=== PATIENT | male | born 1960 | race Caucasian/White ===

== ENCOUNTER 2018-02-25 15:02 | Emergency (ER) | payer MEDICARE ==
[~2018-02-25] VITALS: Ht 170.2 cm; Wt 100.0 kg
[2018-02-25 17:53] VITALS: BP 131/82
== END 2018-02-25 17:57 | disposition home or self-care (01) ==
LOC: ER 15:02
DX: S83.8X1A Sprain of other specified parts of right knee, initial encounter (principal); E11.9 Type 2 diabetes mellitus without complications; K21.9 Gastro-esophageal reflux disease without esophagitis; E78.00 Pure hypercholesterolemia, unspecified; Z93.3 Colostomy status; X58.XXXA Exposure to other specified factors, initial encounter; Y93.01 Activity, walking, marching and hiking; Y92.89 Other specified places as the place of occurrence of the external cause; Y99.8 Other external cause status
CPT/HCPCS: 73562; 99284; L1830

== ENCOUNTER 2019-03-19 01:51 | Inpatient (IN) | payer MEDICARE, MEDICAID ==
[2019-03-19] VITALS (60 sets, daily range): BP systolic 81–181; BP diastolic 40–110
[~2019-03-19] VITALS: Ht 167.6 cm; Wt 97.7 kg
[2019-03-19] MEDS ORDERED: ONDANSETRON HCL 4MG/2ML INJ IV STA (02:25)
[2019-03-19] MEDS ORDERED: SODIUM CHLORIDE 0.9% 1,000 ML IV ONE ×5 (02:25→05:07)
[2019-03-19] MEDS ORDERED: FENTANYL CITRATE/PF 50MCG/ML 2ML VIAL IV ONE ×2 (02:30→05:15)
[2019-03-19 02:45] LABS: HEMATOCRIT. 40.1 % (42.0-52.0); HEMOGLOBIN. 13.9 g/dL (14.0-18.0); MEAN CORPUSCULAR HEMOGLOBIN 30.8 pg (28.0-32.0); MEAN CORPUSCULAR VOLUME 88.5 fL (80.0-94.0); MEAN PLATELET VOLUME 7.2 fl (7.4-10.4); PLATELET 397 x1000/uL (130-400); RED BLOOD CELL COUNT 4.53 mill/uL (4.7-6.1); RED CELL DISTRIBUTION WIDTH 13.8 % (11.6-14.6)
[2019-03-19] MEDS ORDERED: METRONIDAZOLE 500 MG PREMIX 100 ML IV ONE (02:45)
[2019-03-19] MEDS ORDERED: PIPERACILLIN/TAZ 3.375G PREMIX 50 ML IV ONE ×2 (02:45→12:15)
[2019-03-19] MEDS ORDERED: CEFTRIAXONE 1 G PREMIX 50 ML IV ONE (02:45)
[2019-03-19 02:46] LABS: BG BASE EXCESS -9.3 mmol/L (-2.0-2.0); BG CARBOXYHEMOGLOBIN 0.7 % (0.5-1.5); BG DEOXYHEMOGLOBIN 10.5 % (0.0-5.0); BG FRACTION INSPIRED OXYGEN 36; BG OXYGEN SATURATION 89.4 % (92.0-98.5); BG OXYHEMOGLOBIN 88.8 % (94.0-97.0); BG PCO2 38.5 mmHg (35.0-45.0); BG PH 7.263 (7.350-7.450); BG PO2 63.8 mmHg (75.0-100.0); BG SAMPLE SITE RIGHT RADIAL; BG TOTAL HEMOGLOBIN 14.4 g/dL (12.0-18.0); BG VENT MODE NASAL CANNULA
[2019-03-19 02:49] LABS: CHLORIDE 104 mEq/L (98-107)
[2019-03-19 02:51] LABS: PROTHROMBIN TIME 10.6 sec (9.6-11.0)
[2019-03-19] MEDS ORDERED: DIATR MEGLU/DIATRIZOATE SOLN 30ML ONE (02:57)
[2019-03-19] MEDS ORDERED: IOHEXOL-300 100 ML BOTTLE ONE (02:57)
[2019-03-19] MEDS ORDERED: DIATR MEGLU/DIATRIZOATE SOLN 120ML ONE (03:24)
[2019-03-19 04:12] LABS: PLATELET ESTIMATE NORMAL
[2019-03-19] MEDS ORDERED: HYDROMORPHONE HCL/PF 2MG/ML CPJ IV ONE (04:30)
[2019-03-19] MEDS ORDERED: FENTANYL CITRATE/PF 50MCG/ML 2ML VIAL ONE (06:15)
[2019-03-19] MEDS ORDERED: MIDAZOLAM HCL 2 MG/2 ML VIAL ONE ×2 (06:16→07:24)
[2019-03-19] MEDS ORDERED: SUCCINYLCHOLINE CHLORIDE 200MG/10ML IV ONE (06:20)
[2019-03-19] MEDS ORDERED: ETOMIDATE 2MG/ML 10ML VIAL IV ONE (06:20)
[2019-03-19] MEDS ORDERED: LIDOCAINE HCL/PF 1% 10 MG/ML 5ML VIAL ONE (06:20)
[2019-03-19] MEDS ORDERED: SODIUM CHLORIDE 0.9% 10ML VIAL ONE (06:24)
[2019-03-19] MEDS ORDERED: EPHEDRINE SULFATE 50MG/ML VIAL ONE (06:24)
[2019-03-19] MEDS ORDERED: PHENYLEPHRINE HCL 10 MG/ML 1ML (IV VIAL) IV ONE (06:26)
[2019-03-19] MEDS ORDERED: ROCURONIUM BROMIDE 10MG/ML VIAL 5ML IV ONE ×3 (06:29→08:33)
[2019-03-19] MEDS ORDERED: DEXAMETHASONE 4MG/ML 1ML VIAL ONE (06:31)
[2019-03-19] MEDS ORDERED: ONDANSETRON HCL 4MG/2ML INJ ONE (07:44)
[2019-03-19] MEDS ORDERED: SODIUM BICARBONATE 4% (2.4MEQ) 5ML VIAL IV ONE (07:59)
[2019-03-19] MEDS ORDERED: SODIUM BICARBONATE 8.4% 1 MEQ/ML 50ML SYR IV ONE (07:59)
[2019-03-19] MEDS ORDERED: ALBUMIN HUMAN 12.5G/250ML (5%) IV ONE (08:05)
[2019-03-19] MEDS ORDERED: ONDANSETRON HCL 4MG/2ML INJ IV PRN (10:00)
[2019-03-19] MEDS: MORPHINE SULFATE 2 MG/ML CPJ (NOT FOR IM USE) IV PRN (10:04)
[2019-03-19 10:25] LABS: BG BASE EXCESS -8.3 mmol/L (-2.0-2.0); BG CARBOXYHEMOGLOBIN 0.2 % (0.5-1.5); BG DEOXYHEMOGLOBIN 5.2 % (0.0-5.0); BG HCO3 ACT 18.1 mmol/L (22.0-26.0); BG METHEMOGLOBIN 0.2 % (0.0-1.5); BG OXYGEN SATURATION 94.8 % (92.0-98.5); BG OXYHEMOGLOBIN 94.4 % (94.0-97.0); BG PCO2 40.8 mmHg (35.0-45.0); BG PH 7.266 (7.350-7.450); BG PO2 85.8 mmHg (75.0-100.0); BG SAMPLE SITE RIGHT BRACHIAL; BG TIDAL VOLUME(mL) 600 mL; BG TOTAL HEMOGLOBIN 10.4 g/dL (12.0-18.0); BG VENT MODE VENT - A/C; BG VENT RATE 14 set
[2019-03-19] MEDS ORDERED: DEXT 5%/0.45% NACL KCL 20MEQ/L 1,000 ML IV SCH (11:00)
[2019-03-19 11:08] LABS: HEMATOCRIT. 28.5 % (42.0-52.0); HEMOGLOBIN. 9.9 g/dL (14.0-18.0); MEAN CORPUSCULAR HEMOGLOBIN 30.6 pg (28.0-32.0); MEAN CORPUSCULAR VOLUME 88.3 fL (80.0-94.0); MEAN PLATELET VOLUME 7.2 fl (7.4-10.4); PLATELET 359 x1000/uL (130-400); RED BLOOD CELL COUNT 3.23 mill/uL (4.7-6.1); RED CELL DISTRIBUTION WIDTH 13.7 % (11.6-14.6)
[2019-03-19 11:17] LABS: CHLORIDE 114 mEq/L (98-107); INR 1.1; PARTIAL THROMBOPLASTIN TIME 28.1 sec (23.4-31.0); PROTHROMBIN TIME 11.6 sec (9.6-11.0)
[2019-03-19] MEDS: DEXT 5%/0.9% NACL 1,000 ML IV SCH ×2 (11:17→19:15)
[2019-03-19] MEDS: MORPHINE SULFATE 4 MG/ML CPJ (NOT FOR IM USE) IV PRN ×3 (11:17→22:59)
[2019-03-19] MEDS ORDERED: IPRATROPIUM/ALBUTEROL 0.5-3(2.5)MG/3ML NEB NEB PRN (11:45)
[2019-03-19 12:20] LABS: TOTAL IRON BINDING CAPACITY 283 ug/dL (250-450)
[2019-03-19 12:23] LABS: PLATELET ESTIMATE NORMAL
[2019-03-19] MEDS: PANTOPRAZOLE SODIUM 40 MG/VIAL IV SCH ×2 (12:28→17:53)
[2019-03-19] MEDS: PROPOFOL 10MG/ML 100ML 100 ML IV PRN ×2 (12:29→19:50)
[2019-03-19] MEDS ORDERED: SODIUM BICARBONATE 8.4% 1 MEQ/ML 50ML SYR IV SCH (12:30)
[2019-03-19] MEDS ORDERED: PIPERACILLIN/TAZOBACTAM 3.375 G in DEXT 5% WATER 100 ML IV SCH (12:30)
[2019-03-19] MEDS: IPRATROPIUM/ALBUTEROL 0.5-3(2.5)MG/3ML NEB HHN SCH ×3 (12:44→20:28)
[2019-03-19 12:47] LABS: FOLIC ACID (FOLATE) SERUM 16.9 ng/mL (>5.38)
[2019-03-19 13:28] LABS: BG BASE EXCESS -6.9 mmol/L (-2.0-2.0); BG CARBOXYHEMOGLOBIN 0.2 % (0.5-1.5); BG FRACTION INSPIRED OXYGEN 100; BG HCO3 ACT 17.5 mmol/L (22.0-26.0); BG METHEMOGLOBIN 0.3 % (0.0-1.5); BG OXYHEMOGLOBIN 98.5 % (94.0-97.0); BG PCO2 31.1 mmHg (35.0-45.0); BG PH 7.367 (7.350-7.450); BG PO2 302.5 mmHg (75.0-100.0); BG SAMPLE SITE RIGHT BRACHIAL; BG TIDAL VOLUME(mL) 600 mL; BG TOTAL HEMOGLOBIN 10.7 g/dL (12.0-18.0); BG VENT MODE VENT - A/C; BG VENT RATE 20 set
[2019-03-19] MEDS: PIPERACILLIN/TAZOBACTAM 3.375 G in DEXT 5% WATER 100 ML IV SCH ×2 (14:57→21:28)
[2019-03-19 16:14] LABS: *AMPHETAMINES SCREEN URINE NEGATIVE (NEGATIVE)
[2019-03-19 16:15] LABS: *BARBITURATES SCREEN URINE NEGATIVE (NEGATIVE); *BENZODIAZEPINES SCREEN URINE PRESUMTIVE POSITIVE (NEGATIVE); *COCAINE SCREEN URINE NEGATIVE (NEGATIVE); METHADONE URINE SCREEN NEGATIVE (NEGATIVE); OPIATES URINE SCREEN PRESUMTIVE POSITIVE (NEGATIVE); PHENCYCLIDINE URINE SCREEN NEGATIVE (NEGATIVE)
[2019-03-19 16:16] LABS: CANNABINOID URINE SCREEN NEGATIVE (NEGATIVE)
[2019-03-19 16:54] LABS: CREATINE KINASE 644 IU/L (39-308)
[2019-03-19 16:55] LABS: CREATINE KINASE MB FRACTION 16.1 ng/mL (0.5-3.6)
[2019-03-19] MEDS ORDERED: SODIUM CHLORIDE 0.9% 500 ML IV NR (17:00)
[2019-03-19] MEDS ORDERED: SODIUM CHLORIDE 0.9% 1000ML BAG (SEPSIS BOLUS) IV NR (18:45)
[2019-03-19] MEDS ORDERED: FAMOTIDINE 20MG/2ML VIAL IV SCH (21:00)
[2019-03-19] MEDS: ACETAMINOPHEN 650MG SUPP PR PRN (21:29)
[2019-03-19] MEDS: PHENYLEPHRINE 20 MG in DEXT 5% WATER 248 ML IV PRN (22:59)
[2019-03-20] VITALS (105 sets, daily range): BP systolic 60–172; BP diastolic 14–116
[2019-03-20 00:05] LABS: CREATINE KINASE 896 IU/L (39-308)
[2019-03-20 00:06] LABS: CREATINE KINASE MB FRACTION 12.5 ng/mL (0.5-3.6)
[2019-03-20] MEDS: IPRATROPIUM/ALBUTEROL 0.5-3(2.5)MG/3ML NEB HHN SCH ×6 (00:36→21:11)
[2019-03-20] MEDS: PHENYLEPHRINE 20 MG in DEXT 5% WATER 248 ML IV PRN (01:36)
[2019-03-20] MEDS: MORPHINE SULFATE 2 MG/ML CPJ (NOT FOR IM USE) IV PRN ×2 (01:37→14:31)
[2019-03-20] MEDS: MORPHINE SULFATE 4 MG/ML CPJ (NOT FOR IM USE) IV PRN ×4 (02:35→21:28)
[2019-03-20] MEDS: PHENYLEPHRINE 80 MG in DEXT 5% WATER 492 ML IV PRN ×2 (03:22→13:13)
[2019-03-20] MEDS: ACETAMINOPHEN 650MG SUPP PR PRN ×2 (03:46→20:50)
[2019-03-20] MEDS: DEXT 5%/0.9% NACL 1,000 ML IV SCH ×3 (04:08→19:15)
[2019-03-20] MEDS: PANTOPRAZOLE SODIUM 40 MG/VIAL IV SCH ×2 (05:17→18:41)
[2019-03-20] MEDS: PIPERACILLIN/TAZOBACTAM 3.375 G in DEXT 5% WATER 100 ML IV SCH ×3 (05:17→21:25)
[2019-03-20] MEDS: PROPOFOL 10MG/ML 100ML 100 ML IV PRN ×3 (06:31→20:17)
[2019-03-20 07:48] LABS: BG BASE EXCESS -5.6 mmol/L (-2.0-2.0); BG CARBOXYHEMOGLOBIN 0.2 % (0.5-1.5); BG DEOXYHEMOGLOBIN 3.3 % (0.0-5.0); BG HCO3 ACT 18.1 mmol/L (22.0-26.0); BG METHEMOGLOBIN 0.1 % (0.0-1.5); BG OXYGEN SATURATION 96.7 % (92.0-98.5); BG OXYHEMOGLOBIN 96.4 % (94.0-97.0); BG PCO2 28.5 mmHg (35.0-45.0); BG PH 7.421 (7.350-7.450); BG PO2 88.7 mmHg (75.0-100.0); BG SAMPLE SITE RIGHT BRACHIAL; BG TIDAL VOLUME(mL) 600 mL; BG TOTAL HEMOGLOBIN 7.8 g/dL (12.0-18.0); BG VENT MODE VENT - A/C; BG VENT RATE 20 set
[2019-03-20 15:54] LABS: CHLORIDE 114 mEq/L (98-107)
[2019-03-20 16:04] LABS: MEAN CORPUSCULAR HEMOGLOBIN 30.9 pg (28.0-32.0); MEAN CORPUSCULAR VOLUME 87.3 fL (80.0-94.0); MEAN PLATELET VOLUME 7.7 fl (7.4-10.4); PLATELET 262 x1000/uL (130-400); RED BLOOD CELL COUNT 2.35 mill/uL (4.7-6.1); RED CELL DISTRIBUTION WIDTH 14.4 % (11.6-14.6)
[2019-03-20 16:59] LABS: HEMATOCRIT. 20.5 % (42.0-52.0); HEMOGLOBIN. 7.3 g/dL (14.0-18.0)
[2019-03-20 22:46] LABS: PLATELET ESTIMATE NORMAL
[2019-03-21] VITALS (106 sets, daily range): BP systolic 83–159; BP diastolic 41–91
[2019-03-21] MEDS: IPRATROPIUM/ALBUTEROL 0.5-3(2.5)MG/3ML NEB HHN SCH ×6 (00:12→20:38)
[2019-03-21 00:14] LABS: HEMOGLOBIN 7.3 g/dL (14.0-18.0)
[2019-03-21 00:17] LABS: HEMATOCRIT 20.7 % (42.0-52.0)
[2019-03-21] MEDS: PHENYLEPHRINE 80 MG in DEXT 5% WATER 492 ML IV PRN ×2 (00:45→13:29)
[2019-03-21] MEDS: MORPHINE SULFATE 4 MG/ML CPJ (NOT FOR IM USE) IV PRN (00:50)
[2019-03-21] MEDS: ACETAMINOPHEN 650MG SUPP PR PRN ×2 (02:55→16:22)
[2019-03-21] MEDS: PROPOFOL 10MG/ML 100ML 100 ML IV PRN (04:01)
[2019-03-21] MEDS: PANTOPRAZOLE SODIUM 40 MG/VIAL IV SCH ×2 (05:00→17:08)
[2019-03-21] MEDS: PIPERACILLIN/TAZOBACTAM 3.375 G in DEXT 5% WATER 100 ML IV SCH ×3 (05:00→21:42)
[2019-03-21 07:28] LABS: HEMATOCRIT. 26.7 % (42.0-52.0); HEMOGLOBIN. 9.2 g/dL (14.0-18.0); MEAN CORPUSCULAR HEMOGLOBIN 31.3 pg (28.0-32.0); MEAN CORPUSCULAR VOLUME 90.2 fL (80.0-94.0); RED BLOOD CELL COUNT 2.96 mill/uL (4.7-6.1)
[2019-03-21 08:01] LABS: CHLORIDE 113 mEq/L (98-107)
[2019-03-21] MEDS: MORPHINE SULFATE 2 MG/ML CPJ (NOT FOR IM USE) IV PRN (09:46)
[2019-03-21 10:58] LABS: BG BASE EXCESS -3.4 mmol/L (-2.0-2.0); BG CARBOXYHEMOGLOBIN 0.3 % (0.5-1.5); BG DEOXYHEMOGLOBIN 6.7 % (0.0-5.0); BG FRACTION INSPIRED OXYGEN 45; BG METHEMOGLOBIN 0.2 % (0.0-1.5); BG OXYGEN SATURATION 93.3 % (92.0-98.5); BG OXYHEMOGLOBIN 92.8 % (94.0-97.0); BG PCO2 29.8 mmHg (35.0-45.0); BG PH 7.445 (7.350-7.450); BG PO2 64.8 mmHg (75.0-100.0); BG SAMPLE SITE RIGHT RADIAL; BG TIDAL VOLUME(mL) 600 mL; BG VENT MODE VENT - A/C; BG VENT RATE 20 set
[2019-03-21] MEDS: DEXT 5%/0.9% NACL 1,000 ML IV SCH ×3 (11:15→20:05)
[2019-03-21] MEDS: MIDAZOLAM HCL 100 MG in DEXT 5% WATER 80 ML IV PRN ×2 (11:22→21:40)
[2019-03-21] MEDS: FENTANYL CITRATE/PF 500 MCG in SODIUM CHLORIDE 0.9% 40 ML IV PRN ×2 (11:23→20:06)
[2019-03-21] MEDS: ACETYLCYSTEINE 100MG/ML 10% VIAL 4ML INH SCH (15:33)
[2019-03-22] VITALS (95 sets, daily range): BP systolic 92–143; BP diastolic 49–81
[2019-03-22] MEDS: IPRATROPIUM/ALBUTEROL 0.5-3(2.5)MG/3ML NEB HHN SCH ×6 (00:14→20:08)
[2019-03-22] MEDS: ACETYLCYSTEINE 100MG/ML 10% VIAL 4ML INH SCH ×3 (00:14→15:10)
[2019-03-22] MEDS: DEXT 5%/0.9% NACL 1,000 ML IV SCH ×3 (04:09→20:05)
[2019-03-22] MEDS: PIPERACILLIN/TAZOBACTAM 3.375 G in DEXT 5% WATER 100 ML IV SCH ×3 (05:35→21:11)
[2019-03-22] MEDS: PANTOPRAZOLE SODIUM 40 MG/VIAL IV SCH ×2 (05:35→17:30)
[2019-03-22 05:38] LABS: CHLORIDE 114 mEq/L (98-107)
[2019-03-22 07:27] LABS: HEMATOCRIT. 25.2 % (42.0-52.0); HEMOGLOBIN. 8.7 g/dL (14.0-18.0); MEAN CORPUSCULAR HEMOGLOBIN 31.4 pg (28.0-32.0); MEAN CORPUSCULAR VOLUME 90.5 fL (80.0-94.0); MEAN PLATELET VOLUME 7.5 fl (7.4-10.4); PLATELET 183 x1000/uL (130-400); RED BLOOD CELL COUNT 2.79 mill/uL (4.7-6.1); RED CELL DISTRIBUTION WIDTH 15.1 % (11.6-14.6)
[2019-03-22 08:22] LABS: PLATELET ESTIMATE NORMAL
[2019-03-22 08:37] LABS: BG CARBOXYHEMOGLOBIN 0.3 % (0.5-1.5); BG DEOXYHEMOGLOBIN 3.7 % (0.0-5.0); BG FRACTION INSPIRED OXYGEN 45; BG HCO3 ACT 22.2 mmol/L (22.0-26.0); BG METHEMOGLOBIN 0.3 % (0.0-1.5); BG OXYGEN SATURATION 96.3 % (92.0-98.5); BG OXYHEMOGLOBIN 95.7 % (94.0-97.0); BG PCO2 30.5 mmHg (35.0-45.0); BG PO2 82.7 mmHg (75.0-100.0); BG SAMPLE SITE RIGHT RADIAL; BG TIDAL VOLUME(mL) 600 mL; BG TOTAL HEMOGLOBIN 7.9 g/dL (12.0-18.0); BG VENT MODE VENT - A/C; BG VENT RATE 20 set
[2019-03-22] MEDS: MIDAZOLAM HCL 100 MG in DEXT 5% WATER 80 ML IV PRN ×2 (09:08→19:56)
[2019-03-22] MEDS: FENTANYL CITRATE/PF 500 MCG in SODIUM CHLORIDE 0.9% 40 ML IV PRN ×3 (09:09→22:09)
[2019-03-22] MEDS ORDERED: POTASSIUM CHLORIDE INJ 40 MEQ in DEXT 5% WATER 250 ML IV NR (12:00)
[2019-03-23] VITALS (99 sets, daily range): BP systolic 99–162; BP diastolic 53–101
[2019-03-23] MEDS: IPRATROPIUM/ALBUTEROL 0.5-3(2.5)MG/3ML NEB HHN SCH ×6 (00:19→19:56)
[2019-03-23] MEDS: ACETYLCYSTEINE 100MG/ML 10% VIAL 4ML INH SCH ×3 (00:19→16:32)
[2019-03-23] MEDS: ACETAMINOPHEN 650MG SUPP PR PRN ×2 (01:25→10:28)
[2019-03-23] MEDS: PANTOPRAZOLE SODIUM 40 MG/VIAL IV SCH ×2 (06:04→17:20)
[2019-03-23] MEDS: DEXT 5%/0.9% NACL 1,000 ML IV SCH ×3 (06:04→19:01)
[2019-03-23] MEDS: PIPERACILLIN/TAZOBACTAM 3.375 G in DEXT 5% WATER 100 ML IV SCH ×3 (06:04→22:56)
[2019-03-23 06:06] LABS: CHLORIDE 114 mEq/L (98-107)
[2019-03-23 06:15] LABS: HEMATOCRIT. 21.4 % (42.0-52.0); HEMOGLOBIN. 7.4 g/dL (14.0-18.0); MEAN CORPUSCULAR HEMOGLOBIN 31.5 pg (28.0-32.0); MEAN CORPUSCULAR VOLUME 90.5 fL (80.0-94.0); MEAN PLATELET VOLUME 7.6 fl (7.4-10.4); PLATELET 174 x1000/uL (130-400); RED BLOOD CELL COUNT 2.36 mill/uL (4.7-6.1); RED CELL DISTRIBUTION WIDTH 15.1 % (11.6-14.6)
[2019-03-23 08:40] LABS: PLATELET ESTIMATE NORMAL
[2019-03-23] MEDS ORDERED: POTASSIUM CHLORIDE INJ 40 MEQ in DEXT 5% WATER 250 ML IV SCH ×2 (09:00→13:00)
[2019-03-23] MEDS ORDERED: METRONIDAZOLE 500 MG PREMIX 100 ML IV SCH (12:00)
[2019-03-23] MEDS ORDERED: POTASSIUM CHLORIDE INJ 40 MEQ in DEXT 5% WATER 250 ML IV ONE (13:00)
[2019-03-23 19:08] LABS: CLARITY URINE CLEAR (CLEAR); COLOR URINE DARK YELLOW (YELLOW); KETONES URINE NEGATIVE (NEGATIVE); LEUKOCYTE ESTERASE URINE NEGATIVE (NEGATIVE); NITRITE URINE NEGATIVE (NEGATIVE); OCCULT BLOOD URINE 2+ (NEGATIVE); PH URINE 5.5 (4.5-8.0); PROTEIN URINE 1+ (NEGATIVE); SPECIFIC GRAVITY URINE 1.013 (1.005-1.030); UROBILINOGEN URINE 0.2 E.U./dL (0.2-1.0)
[2019-03-24] VITALS (85 sets, daily range): BP systolic 120–174; BP diastolic 32–99
[2019-03-24] MEDS: METRONIDAZOLE 500 MG PREMIX 100 ML IV SCH ×3 (00:02→15:57)
[2019-03-24] MEDS: IPRATROPIUM/ALBUTEROL 0.5-3(2.5)MG/3ML NEB HHN SCH ×6 (00:04→20:56)
[2019-03-24] MEDS: ACETYLCYSTEINE 100MG/ML 10% VIAL 4ML INH SCH ×3 (00:04→15:52)
[2019-03-24] MEDS: DEXT 5%/0.9% NACL 1,000 ML IV SCH ×3 (03:27→19:43)
[2019-03-24 05:35] LABS: INR 1.1; PARTIAL THROMBOPLASTIN TIME 31.9 sec (23.4-31.0); PROTHROMBIN TIME 11.6 sec (9.6-11.0)
[2019-03-24 05:37] LABS: CHLORIDE 115 mEq/L (98-107)
[2019-03-24 05:50] LABS: PHOSPHORUS 1.4 mg/dL (2.5-4.9)
[2019-03-24] MEDS: PIPERACILLIN/TAZOBACTAM 3.375 G in DEXT 5% WATER 100 ML IV SCH ×3 (06:00→22:07)
[2019-03-24] MEDS: PANTOPRAZOLE SODIUM 40 MG/VIAL IV SCH ×2 (06:00→17:30)
[2019-03-24 06:09] LABS: HEMATOCRIT. 25.1 % (42.0-52.0); HEMOGLOBIN. 8.7 g/dL (14.0-18.0); MEAN CORPUSCULAR HEMOGLOBIN 30.9 pg (28.0-32.0); MEAN CORPUSCULAR VOLUME 89.7 fL (80.0-94.0); PLATELET 197 x1000/uL (130-400); RED CELL DISTRIBUTION WIDTH 15.5 % (11.6-14.6)
[2019-03-24 07:26] LABS: NUCLEATED RED BLOOD CELLS 1 /100 WBC; PLATELET ESTIMATE NORMAL
[2019-03-24] MEDS ORDERED: MAGNESIUM 2 G PREMIX 50 ML IV SCH (08:00)
[2019-03-24] MEDS: ACETAMINOPHEN 650MG SUPP PR PRN ×3 (08:25→23:32)
[2019-03-24] MEDS ORDERED: POTASSIUM CHLORIDE INJ 40 MEQ in DEXT 5% WATER 250 ML IV ONE (08:30)
[2019-03-24] MEDS ORDERED: POTASSIUM PHOS,M-BASIC-D-BASIC 30 MMOL in DEXT 5% WATER 500 ML IV SCH (08:30)
[2019-03-24 08:46] LABS: BG BASE EXCESS -1.4 mmol/L (-2.0-2.0); BG CARBOXYHEMOGLOBIN 0.3 % (0.5-1.5); BG DEOXYHEMOGLOBIN 1.6 % (0.0-5.0); BG FRACTION INSPIRED OXYGEN 45; BG HCO3 ACT 22.3 mmol/L (22.0-26.0); BG METHEMOGLOBIN 0.2 % (0.0-1.5); BG OXYGEN SATURATION 98.4 % (92.0-98.5); BG OXYHEMOGLOBIN 97.9 % (94.0-97.0); BG PH 7.448 (7.350-7.450); BG PO2 123.5 mmHg (75.0-100.0); BG SAMPLE SITE RIGHT RADIAL; BG TIDAL VOLUME(mL) 600 mL; BG TOTAL HEMOGLOBIN 8.2 g/dL (12.0-18.0); BG VENT MODE VENT - A/C; BG VENT RATE 16 set
[2019-03-24] MEDS ORDERED: POTASSIUM PHOS,M-BASIC-D-BASIC 30 MMOL in DEXT 5% WATER 500 ML IV NR (15:30)
[2019-03-24] MEDS: DIPHENHYDRAMINE 50MG/ML VIAL IV PRN (15:32)
[2019-03-24] MEDS: MORPHINE SULFATE 2 MG/ML CPJ (NOT FOR IM USE) IV PRN ×3 (15:57→23:38)
[2019-03-24] MEDS: LORAZEPAM 2MG/ML CPJ IV PRN (17:31)
[2019-03-25] VITALS (90 sets, daily range): BP systolic 98–168; BP diastolic 46–121
[2019-03-25] MEDS: METRONIDAZOLE 500 MG PREMIX 100 ML IV SCH ×3 (00:27→17:08)
[2019-03-25] MEDS: LORAZEPAM 2MG/ML CPJ IV PRN ×3 (00:27→18:39)
[2019-03-25] MEDS: IPRATROPIUM/ALBUTEROL 0.5-3(2.5)MG/3ML NEB HHN SCH ×6 (00:52→20:35)
[2019-03-25] MEDS: ACETYLCYSTEINE 100MG/ML 10% VIAL 4ML INH SCH ×3 (00:52→17:24)
[2019-03-25] MEDS: DIPHENHYDRAMINE 50MG/ML VIAL IV PRN (01:34)
[2019-03-25] MEDS: DEXT 5%/0.9% NACL 1,000 ML IV SCH ×2 (04:48→13:50)
[2019-03-25 05:05] LABS: HEMATOCRIT. 24.8 % (42.0-52.0); HEMOGLOBIN. 8.6 g/dL (14.0-18.0); MEAN CORPUSCULAR VOLUME 89.7 fL (80.0-94.0); MEAN PLATELET VOLUME 7.4 fl (7.4-10.4); PLATELET 241 x1000/uL (130-400); RED BLOOD CELL COUNT 2.76 mill/uL (4.7-6.1); RED CELL DISTRIBUTION WIDTH 15.5 % (11.6-14.6)
[2019-03-25 05:08] LABS: CHLORIDE 111 mEq/L (98-107)
[2019-03-25 05:14] LABS: PHOSPHORUS 2.2 mg/dL (2.5-4.9)
[2019-03-25] MEDS: MORPHINE SULFATE 2 MG/ML CPJ (NOT FOR IM USE) IV PRN ×4 (05:28→17:56)
[2019-03-25] MEDS: PANTOPRAZOLE SODIUM 40 MG/VIAL IV SCH ×2 (06:19→17:07)
[2019-03-25] MEDS: PIPERACILLIN/TAZOBACTAM 3.375 G in DEXT 5% WATER 100 ML IV SCH ×3 (06:20→22:13)
[2019-03-25] MEDS ORDERED: POTASSIUM PHOS,M-BASIC-D-BASIC 30 MMOL in DEXT 5% WATER 500 ML IV NR (09:00)
[2019-03-25 09:14] LABS: NUCLEATED RED BLOOD CELLS 2 /100 WBC; PLATELET ESTIMATE NORMAL
[2019-03-26] VITALS (84 sets, daily range): BP systolic 92–183; BP diastolic 62–105
[2019-03-26] MEDS: IPRATROPIUM/ALBUTEROL 0.5-3(2.5)MG/3ML NEB HHN SCH ×6 (00:33→20:03)
[2019-03-26] MEDS: ACETYLCYSTEINE 100MG/ML 10% VIAL 4ML INH SCH ×3 (00:33→15:06)
[2019-03-26] MEDS: METRONIDAZOLE 500 MG PREMIX 100 ML IV SCH ×4 (00:36→23:41)
[2019-03-26] MEDS: MORPHINE SULFATE 2 MG/ML CPJ (NOT FOR IM USE) IV PRN ×3 (00:36→15:10)
[2019-03-26] MEDS: DEXT 5%/0.9% NACL 1,000 ML IV SCH ×3 (03:47→22:03)
[2019-03-26] MEDS: PANTOPRAZOLE SODIUM 40 MG/VIAL IV SCH ×2 (06:50→18:45)
[2019-03-26] MEDS: PIPERACILLIN/TAZOBACTAM 3.375 G in DEXT 5% WATER 100 ML IV SCH ×3 (06:51→22:02)
[2019-03-26] MEDS: LORAZEPAM 2MG/ML CPJ IV PRN (20:40)
[2019-03-27] VITALS (90 sets, daily range): BP systolic 105–157; BP diastolic 63–94
[2019-03-27] MEDS: IPRATROPIUM/ALBUTEROL 0.5-3(2.5)MG/3ML NEB HHN SCH ×6 (00:17→20:06)
[2019-03-27] MEDS: DIPHENHYDRAMINE 50MG/ML VIAL IV PRN ×2 (00:29→21:34)
[2019-03-27] MEDS: ONDANSETRON HCL 4MG/2ML INJ IV PRN ×2 (00:30→21:34)
[2019-03-27] MEDS: MORPHINE SULFATE 2 MG/ML CPJ (NOT FOR IM USE) IV PRN ×5 (00:32→21:35)
[2019-03-27] MEDS: DEXT 5%/0.9% NACL 1,000 ML IV SCH ×3 (01:48→19:35)
[2019-03-27 04:49] LABS: CHLORIDE 110 mEq/L (98-107)
[2019-03-27 04:53] LABS: HEMATOCRIT. 22.4 % (42.0-52.0); HEMOGLOBIN. 7.7 g/dL (14.0-18.0); MEAN CORPUSCULAR HEMOGLOBIN 30.8 pg (28.0-32.0); MEAN CORPUSCULAR VOLUME 89.8 fL (80.0-94.0); MEAN PLATELET VOLUME 7.6 fl (7.4-10.4); PLATELET 371 x1000/uL (130-400); RED BLOOD CELL COUNT 2.49 mill/uL (4.7-6.1); RED CELL DISTRIBUTION WIDTH 15.5 % (11.6-14.6)
[2019-03-27] MEDS: PANTOPRAZOLE SODIUM 40 MG/VIAL IV SCH ×2 (06:11→18:18)
[2019-03-27 07:16] LABS: PLATELET ESTIMATE NORMAL
[2019-03-27] MEDS: METRONIDAZOLE 500 MG PREMIX 100 ML IV SCH ×3 (07:29→23:43)
[2019-03-27 09:43] LABS: BG BASE EXCESS 3.8 mmol/L (-2.0-2.0); BG CARBOXYHEMOGLOBIN 0.3 % (0.5-1.5); BG DEOXYHEMOGLOBIN 2.8 % (0.0-5.0); BG FRACTION INSPIRED OXYGEN 45; BG HCO3 ACT 27.4 mmol/L (22.0-26.0); BG METHEMOGLOBIN 0.3 % (0.0-1.5); BG OXYGEN SATURATION 97.2 % (92.0-98.5); BG OXYHEMOGLOBIN 96.6 % (94.0-97.0); BG PCO2 36.9 mmHg (35.0-45.0); BG PH 7.488 (7.350-7.450); BG PO2 95.6 mmHg (75.0-100.0); BG SAMPLE SITE RIGHT RADIAL; BG TIDAL VOLUME(mL) 600 mL; BG TOTAL HEMOGLOBIN 8.5 g/dL (12.0-18.0); BG VENT MODE VENT - A/C; BG VENT RATE 16 set
[2019-03-27] MEDS ORDERED: POTASSIUM PHOS,M-BASIC-D-BASIC 30 MMOL in SODIUM CHLORIDE 0.9% 500 ML IV SCH (11:00)
[2019-03-27] MEDS ORDERED: ACETAMINOPHEN 650MG SUPP PR NR (18:15)
[2019-03-27] MEDS ORDERED: MAGNESIUM 2 G PREMIX 50 ML IV ONE (19:30)
[2019-03-27] MEDS ORDERED: MAGNESIUM 2 G PREMIX 50 ML IV NR (21:00)
[2019-03-27] MEDS: ACETAMINOPHEN 650MG SUPP PR PRN (23:44)
[2019-03-28] VITALS (83 sets, daily range): BP systolic 99–163; BP diastolic 42–91
[2019-03-28] MEDS: IPRATROPIUM/ALBUTEROL 0.5-3(2.5)MG/3ML NEB HHN SCH ×5 (00:12→20:49)
[2019-03-28] MEDS: MORPHINE SULFATE 2 MG/ML CPJ (NOT FOR IM USE) IV PRN ×8 (01:51→23:22)
[2019-03-28] MEDS: DEXT 5%/0.9% NACL 1,000 ML IV SCH ×3 (04:17→21:22)
[2019-03-28 04:43] LABS: HEMATOCRIT. 24.4 % (42.0-52.0); HEMOGLOBIN. 8.6 g/dL (14.0-18.0); MEAN CORPUSCULAR HEMOGLOBIN 31.9 pg (28.0-32.0); MEAN PLATELET VOLUME 7.5 fl (7.4-10.4); PLATELET 436 x1000/uL (130-400); RED BLOOD CELL COUNT 2.71 mill/uL (4.7-6.1); RED CELL DISTRIBUTION WIDTH 15.5 % (11.6-14.6)
[2019-03-28 04:48] LABS: CHLORIDE 109 mEq/L (98-107)
[2019-03-28 04:57] LABS: PHOSPHORUS 2.2 mg/dL (2.5-4.9)
[2019-03-28] MEDS: PANTOPRAZOLE SODIUM 40 MG/VIAL IV SCH ×2 (05:50→17:24)
[2019-03-28] MEDS: ONDANSETRON HCL 4MG/2ML INJ IV PRN (05:51)
[2019-03-28 07:53] LABS: ATYPICAL LYMPHOCYTES 1
[2019-03-28 07:54] LABS: PLATELET ESTIMATE NORMAL
[2019-03-28] MEDS: METRONIDAZOLE 500 MG PREMIX 100 ML IV SCH ×3 (08:14→23:22)
[2019-03-28] MEDS ORDERED: FUROSEMIDE 20MG/2ML VIAL IVP SCH (09:00)
[2019-03-28] MEDS: POTASSIUM PHOS,M-BASIC-D-BASIC 30 MMOL in DEXT 5% WATER 500 ML IV SCH (09:06)
[2019-03-28 12:04] LABS: BG BASE EXCESS 4.1 mmol/L (-2.0-2.0); BG CARBOXYHEMOGLOBIN 0.3 % (0.5-1.5); BG DEOXYHEMOGLOBIN 6.2 % (0.0-5.0); BG FRACTION INSPIRED OXYGEN 45; BG HCO3 ACT 27.9 mmol/L (22.0-26.0); BG METHEMOGLOBIN 0.2 % (0.0-1.5); BG OXYGEN SATURATION 93.8 % (92.0-98.5); BG OXYHEMOGLOBIN 93.3 % (94.0-97.0); BG PCO2 38.7 mmHg (35.0-45.0); BG PH 7.476 (7.350-7.450); BG PO2 68.4 mmHg (75.0-100.0); BG PRESSURE SUPPORT 8; BG SAMPLE SITE RIGHT RADIAL; BG TOTAL HEMOGLOBIN 10.5 g/dL (12.0-18.0); BG VENT MODE VENT - CPAP
[2019-03-28] MEDS ORDERED: POTASSIUM CHLORIDE INJ 40 MEQ in DEXT 5% WATER 250 ML IV SCH (20:00)
[2019-03-29] VITALS (20 sets, daily range): BP systolic 87–141; BP diastolic 66–84
[2019-03-29] MEDS: IPRATROPIUM/ALBUTEROL 0.5-3(2.5)MG/3ML NEB HHN SCH ×6 (00:23→20:00)
[2019-03-29] MEDS: MORPHINE SULFATE 2 MG/ML CPJ (NOT FOR IM USE) IV PRN ×5 (02:25→20:38)
[2019-03-29] MEDS: PANTOPRAZOLE SODIUM 40 MG/VIAL IV SCH ×2 (05:23→18:34)
[2019-03-29] MEDS: DEXT 5%/0.9% NACL 1,000 ML IV SCH ×3 (08:36→20:49)
[2019-03-29] MEDS: METRONIDAZOLE 500 MG PREMIX 100 ML IV SCH ×3 (08:37→23:55)
[2019-03-29] MEDS: POTASSIUM PHOS,M-BASIC-D-BASIC 30 MMOL in DEXT 5% WATER 500 ML IV SCH (08:37)
[2019-03-29] MEDS: CYANOCOBALAMIN 1000MCG/ML VIAL IM SCH (16:53)
[2019-03-29] MEDS: ONDANSETRON HCL 4MG/2ML INJ IV PRN (20:48)
[2019-03-30] VITALS (9 sets, daily range): BP systolic 123–153; BP diastolic 68–98
[2019-03-30] MEDS: MORPHINE SULFATE 2 MG/ML CPJ (NOT FOR IM USE) IV PRN ×2 (01:04→05:05)
[2019-03-30] MEDS: ONDANSETRON HCL 4MG/2ML INJ IV PRN ×2 (01:05→05:05)
[2019-03-30] MEDS: DEXT 5%/0.9% NACL 1,000 ML IV SCH ×3 (04:40→20:08)
[2019-03-30] MEDS: PANTOPRAZOLE SODIUM 40 MG/VIAL IV SCH ×2 (06:38→18:16)
[2019-03-30] MEDS: METRONIDAZOLE 500 MG PREMIX 100 ML IV SCH ×2 (08:18→16:02)
[2019-03-30] MEDS: CYANOCOBALAMIN 1000MCG/ML VIAL IM SCH (08:45)
[2019-03-30] MEDS ORDERED: DIATR MEGLU/DIATRIZOATE SOLN 120ML ONE (09:19)
[2019-03-30] MEDS: IPRATROPIUM/ALBUTEROL 0.5-3(2.5)MG/3ML NEB HHN SCH ×4 (09:25→21:05)
[2019-03-30] MEDS ORDERED: FUROSEMIDE 20MG/2ML VIAL IVP SCH (11:45)
[2019-03-30] MEDS: POTASSIUM PHOS,M-BASIC-D-BASIC 30 MMOL in DEXT 5% WATER 500 ML IV SCH (12:00)
[2019-03-30 12:16] LABS: BG BASE EXCESS 3.7 mmol/L (-2.0-2.0); BG CARBOXYHEMOGLOBIN 0.8 % (0.5-1.5); BG DEOXYHEMOGLOBIN 14.1 % (0.0-5.0); BG FRACTION INSPIRED OXYGEN 50; BG HCO3 ACT 26.2 mmol/L (22.0-26.0); BG METHEMOGLOBIN 0.2 % (0.0-1.5); BG OXYGEN SATURATION 85.8 % (92.0-98.5); BG OXYHEMOGLOBIN 84.9 % (94.0-97.0); BG PCO2 32.8 mmHg (35.0-45.0); BG PH 7.521 (7.350-7.450); BG PO2 48.7 mmHg (75.0-100.0); BG SAMPLE SITE RIGHT RADIAL; BG TOTAL HEMOGLOBIN 11.4 g/dL (12.0-18.0); BG VENT MODE MASK - VENTI
[2019-03-30] MEDS: ACETAMINOPHEN 650MG SUPP PR PRN (13:17)
[2019-03-30 16:03] LABS: CHLORIDE 106 mEq/L (98-107)
[2019-03-30 16:05] LABS: HEMOGLOBIN 11.4 g/dL (14.0-18.0); MEAN CORPUSCULAR HEMOGLOBIN 31.1 pg (28.0-32.0); MEAN CORPUSCULAR VOLUME 89.9 fL (80.0-94.0); PLATELET 861 x1000/uL (130-400); RED BLOOD CELL COUNT 3.67 mill/uL (4.7-6.1); RED CELL DISTRIBUTION WIDTH 15.8 % (11.6-14.6)
[2019-03-30] MEDS ORDERED: POTASSIUM CHLORIDE 20MEQ TABLET SR PO NR (19:00)
[2019-03-30] MEDS ORDERED: IOHEXOL-350 100 ML BOTTLE ONE (19:38)
[2019-03-31] VITALS (11 sets, daily range): BP systolic 118–144; BP diastolic 58–99
[2019-03-31] MEDS: METRONIDAZOLE 500 MG PREMIX 100 ML IV SCH (00:23)
[2019-03-31] MEDS: IPRATROPIUM/ALBUTEROL 0.5-3(2.5)MG/3ML NEB HHN SCH ×6 (01:40→20:35)
[2019-03-31] MEDS: DEXT 5%/0.9% NACL 1,000 ML IV SCH ×3 (03:39→19:53)
[2019-03-31] MEDS: PANTOPRAZOLE SODIUM 40 MG/VIAL IV SCH ×2 (05:38→18:31)
[2019-03-31 06:33] LABS: HEMATOCRIT. 26.7 % (42.0-52.0); MEAN CORPUSCULAR HEMOGLOBIN 30.4 pg (28.0-32.0); MEAN CORPUSCULAR VOLUME 90.4 fL (80.0-94.0); MEAN PLATELET VOLUME 7.1 fl (7.4-10.4); PLATELET 777 x1000/uL (130-400); RED BLOOD CELL COUNT 2.95 mill/uL (4.7-6.1)
[2019-03-31 06:51] LABS: CHLORIDE 108 mEq/L (98-107)
[2019-03-31 07:00] LABS: PHOSPHORUS 2.8 mg/dL (2.5-4.9)
[2019-03-31] MEDS: CYANOCOBALAMIN 1000MCG/ML VIAL IM SCH (09:00)
[2019-03-31] MEDS ORDERED: POTASSIUM CHLORIDE 20MEQ TABLET SR PO SCH (09:45)
[2019-03-31] MEDS: FUROSEMIDE 20MG TABLET PO SCH ×2 (09:45→21:22)
[2019-03-31] MEDS: SPIRONOLACTONE 25MG TABLET PO SCH ×2 (09:45→18:31)
[2019-03-31 11:37] LABS: BG CARBOXYHEMOGLOBIN 0.1 % (0.5-1.5); BG DEOXYHEMOGLOBIN 11.2 % (0.0-5.0); BG FRACTION INSPIRED OXYGEN 21; BG HCO3 ACT 25.3 mmol/L (22.0-26.0); BG METHEMOGLOBIN 0.3 % (0.0-1.5); BG OXYGEN SATURATION 88.8 % (92.0-98.5); BG OXYHEMOGLOBIN 88.4 % (94.0-97.0); BG PCO2 30.3 mmHg (35.0-45.0); BG PH 7.539 (7.350-7.450); BG PO2 51.8 mmHg (75.0-100.0); BG SAMPLE SITE RIGHT RADIAL; BG TOTAL HEMOGLOBIN 10.1 g/dL (12.0-18.0); BG VENT MODE ROOM AIR
[2019-03-31 13:15] LABS: PLATELET ESTIMATE MARKEDLY INCREASED
[2019-03-31] MEDS: POTASSIUM PHOS,M-BASIC-D-BASIC 30 MMOL in DEXT 5% WATER 500 ML IV SCH (14:30)
[2019-03-31] MEDS: MORPHINE SULFATE 2 MG/ML CPJ (NOT FOR IM USE) IV PRN ×2 (14:48→19:53)
[2019-04-01] VITALS (13 sets, daily range): BP systolic 113–144; BP diastolic 64–93
[2019-04-01] MEDS: IPRATROPIUM/ALBUTEROL 0.5-3(2.5)MG/3ML NEB HHN SCH ×6 (00:07→20:41)
[2019-04-01] MEDS: MORPHINE SULFATE 2 MG/ML CPJ (NOT FOR IM USE) IV PRN ×4 (00:09→19:54)
[2019-04-01] MEDS: DEXT 5%/0.9% NACL 1,000 ML IV SCH ×3 (04:11→19:54)
[2019-04-01] MEDS: PANTOPRAZOLE SODIUM 40 MG/VIAL IV SCH ×2 (06:15→17:27)
[2019-04-01] MEDS: SPIRONOLACTONE 25MG TABLET PO SCH (06:15)
[2019-04-01 07:19] LABS: HEMATOCRIT. 28.6 % (42.0-52.0); HEMOGLOBIN. 9.6 g/dL (14.0-18.0); MEAN CORPUSCULAR HEMOGLOBIN 30.3 pg (28.0-32.0); MEAN CORPUSCULAR VOLUME 90.2 fL (80.0-94.0); PLATELET 810 x1000/uL (130-400); RED BLOOD CELL COUNT 3.17 mill/uL (4.7-6.1); RED CELL DISTRIBUTION WIDTH 16.3 % (11.6-14.6)
[2019-04-01 07:28] LABS: CHLORIDE 106 mEq/L (98-107)
[2019-04-01 07:41] LABS: PHOSPHORUS 2.8 mg/dL (2.5-4.9)
[2019-04-01] MEDS: CYANOCOBALAMIN 1000MCG/ML VIAL IM SCH (08:45)
[2019-04-01] MEDS: POTASSIUM PHOS,M-BASIC-D-BASIC 30 MMOL in DEXT 5% WATER 500 ML IV SCH (08:45)
[2019-04-01] MEDS: FUROSEMIDE 20MG TABLET PO SCH ×2 (08:45→21:44)
[2019-04-01] MEDS ORDERED: POTASSIUM CHLORIDE 20MEQ/PACKET PO SCH (09:15)
[2019-04-01 12:03] LABS: NUCLEATED RED BLOOD CELLS 1 /100 WBC; PLATELET ESTIMATE INCREASED
[2019-04-01] MEDS: SPIRONOLACTONE 50MG TABLET PO SCH (17:27)
[2019-04-02] MEDS: MORPHINE SULFATE 2 MG/ML CPJ (NOT FOR IM USE) IV PRN ×5 (00:16→21:01)
[2019-04-02] MEDS: IPRATROPIUM/ALBUTEROL 0.5-3(2.5)MG/3ML NEB HHN SCH ×6 (01:30→21:50)
[2019-04-02] MEDS: DEXT 5%/0.9% NACL 1,000 ML IV SCH (03:41)
[2019-04-02 04:00] VITALS: BP 121/79
[2019-04-02] MEDS: PANTOPRAZOLE SODIUM 40 MG/VIAL IV SCH ×2 (05:34→18:54)
[2019-04-02] MEDS: SPIRONOLACTONE 50MG TABLET PO SCH ×2 (05:34→18:54)
[2019-04-02 06:39] LABS: HEMATOCRIT. 30.6 % (42.0-52.0); HEMOGLOBIN. 9.7 g/dL (14.0-18.0); MEAN CORPUSCULAR HEMOGLOBIN 28.8 pg (28.0-32.0); MEAN CORPUSCULAR VOLUME 90.6 fL (80.0-94.0); MEAN PLATELET VOLUME 7.1 fl (7.4-10.4); PLATELET 896 x1000/uL (130-400); RED BLOOD CELL COUNT 3.38 mill/uL (4.7-6.1); RED CELL DISTRIBUTION WIDTH 16.3 % (11.6-14.6)
[2019-04-02 06:53] LABS: CHLORIDE 104 mEq/L (98-107)
[2019-04-02 07:11] LABS: PHOSPHORUS 3.2 mg/dL (2.5-4.9)
[2019-04-02 08:00] VITALS: BP 116/76
[2019-04-02] MEDS: FUROSEMIDE 20MG TABLET PO SCH ×2 (10:02→21:02)
[2019-04-02] MEDS: CYANOCOBALAMIN 1000MCG/ML VIAL IM SCH (10:02)
[2019-04-02] MEDS: CARVEDILOL 3.125 MG TABLET PO SCH ×2 (10:02→21:00)
[2019-04-02 10:19] LABS: PLATELET ESTIMATE INCREASED
[2019-04-02 12:00] VITALS: BP 107/76
[2019-04-02] MEDS: POTASSIUM PHOS,M-BASIC-D-BASIC 30 MMOL in DEXT 5% WATER 500 ML IV SCH (13:24)
[2019-04-02 16:00] VITALS: BP 123/69
[2019-04-02 20:00] VITALS: BP 105/65
[2019-04-03] VITALS: BP 120/75
[2019-04-03] MEDS: IPRATROPIUM/ALBUTEROL 0.5-3(2.5)MG/3ML NEB HHN SCH ×5 (01:00→16:15)
[2019-04-03] MEDS: MORPHINE SULFATE 2 MG/ML CPJ (NOT FOR IM USE) IV PRN ×3 (01:01→12:14)
[2019-04-03 04:00] VITALS: BP 100/58
[2019-04-03] MEDS: PANTOPRAZOLE SODIUM 40 MG/VIAL IV SCH (05:32)
[2019-04-03] MEDS: SPIRONOLACTONE 50MG TABLET PO SCH (05:33)
[2019-04-03 06:25] LABS: T4 FREE 1.67 ng/dL (0.76-1.46)
[2019-04-03] MEDS ORDERED: FUROSEMIDE 20MG TABLET PO SCH (08:00)
[2019-04-03 08:02] VITALS: BP 110/73
[2019-04-03] MEDS: CARVEDILOL 3.125 MG TABLET PO SCH (08:43)
[2019-04-03] MEDS: CYANOCOBALAMIN 1000MCG/ML VIAL IM SCH (08:43)
[2019-04-03] MEDS ORDERED: POTASSIUM-SODIUM PHOSPHATE POWDER PACKET PO SCH (09:00)
[2019-04-03] MEDS ORDERED: LOSARTAN POTASSIUM 25 MG TABLET PO SCH (09:00)
[2019-04-03 12:00] VITALS: BP 108/71
[2019-04-03 13:40] VITALS: BP_SYST 104; BP_SYST 108; BP_DIAS 71; BP_DIAS 73
[2019-04-03 15:37] VITALS: BP 104/73
[2019-04-04] MEDS ORDERED: SPIRONOLACTONE 50MG TABLET PO SCH (06:00)
[2019-04-08 04:09] LABS: 25-HYDROXY VITAMIN D3 28 ng/mL (.)
[2019-04-11] MEDS ORDERED: CYANOCOBALAMIN 1000MCG/ML VIAL IM SCH (09:00)
== END 2019-04-03 17:27 | DRG 853 ==
LOC: ER 01:51 → EDBEDREQSVC 04:54 → EDBEDREQ 04:54 → EDBEDREQTM 04:54 → ENRESERV 07:29 → MICUNO 09:30 → 6EST 03-29 18:06 → 3WST 03-30 13:55 → 7WST 04-01 23:40
PROVIDERS: ADMIT Internal Medicine; ATTEND Internal Medicine
PROC: 0DN60ZZ Release Stomach, Open Approach (ICD-10-PCS; principal; 2019-03-19)
PROC: 0WUF4JZ Supplement Abdominal Wall with Synthetic Substitute, Percutaneous Endoscopic Approach (ICD-10-PCS; 2019-03-19)
PROC: 0DBU0ZX Excision of Omentum, Open Approach, Diagnostic (ICD-10-PCS; 2019-03-19)
PROC: 5A1955Z Respiratory Ventilation, Greater than 96 Consecutive Hours (ICD-10-PCS; 2019-03-19)
PROC: 0BH17EZ Insertion of Endotracheal Airway into Trachea, Via Natural or Artificial Opening (ICD-10-PCS; 2019-03-19)
PROC: 02HV33Z Insertion of Infusion Device into Superior Vena Cava, Percutaneous Approach (ICD-10-PCS; 2019-03-20)
PROC: B548ZZA Ultrasonography of Superior Vena Cava, Guidance (ICD-10-PCS; 2019-03-20)
PROC: 30233N1 Transfusion of Nonautologous Red Blood Cells into Peripheral Vein, Percutaneous Approach (ICD-10-PCS; 2019-03-20)
DX: A41.9 Sepsis, unspecified organism (principal); K25.5 Chronic or unspecified gastric ulcer with perforation; K63.1 Perforation of intestine (nontraumatic); R65.21 Severe sepsis with septic shock; E43 Unspecified severe protein-calorie malnutrition; J18.9 Pneumonia, unspecified organism; J96.01 Acute respiratory failure with hypoxia; G93.40 Encephalopathy, unspecified; J98.11 Atelectasis; E87.2 Acidosis; D62 Acute posthemorrhagic anemia; I42.9 Cardiomyopathy, unspecified; I50.40 Unspecified combined systolic (congestive) and diastolic (congestive) heart failure; K43.3 Parastomal hernia with obstruction, without gangrene; K43.0 Incisional hernia with obstruction, without gangrene; T79.A3XA Traumatic compartment syndrome of abdomen, initial encounter; E78.5 Hyperlipidemia, unspecified; E11.9 Type 2 diabetes mellitus without complications; E87.6 Hypokalemia; E83.39 Other disorders of phosphorus metabolism; E83.42 Hypomagnesemia; K21.9 Gastro-esophageal reflux disease without esophagitis; S20.322A Blister (nonthermal) of left front wall of thorax, initial encounter; S20.422A Blister (nonthermal) of left back wall of thorax, initial encounter; X58.XXXA Exposure to other specified factors, initial encounter; R13.10 Dysphagia, unspecified; E78.00 Pure hypercholesterolemia, unspecified; E53.8 Deficiency of other specified B group vitamins; R53.81 Other malaise; R26.9 Unspecified abnormalities of gait and mobility; Z93.3 Colostomy status; Z85.048 Personal history of other malignant neoplasm of rectum, rectosigmoid junction, and anus; Z78.1 Physical restraint status; Y93.89 Activity, other specified; Y92.89 Other specified places as the place of occurrence of the external cause; Y99.8 Other external cause status; Z92.3 Personal history of irradiation; Z79.51 Long term (current) use of inhaled steroids; Z68.34 Body mass index [BMI] 34.0-34.9, adult
CPT/HCPCS: 36415; 36600; 71045; 71275; 74177; 74246; 76937; 80048; 80305; 81003; 82306; 82375; 82465; 82550; 82553; 82607; 82746; 82805; 82962; 83036; 83540; 83550; 83605; 83735; 83880; 84100; 84132; 84134; 84439; 84443; 84478; 84481; 84484; 85014; 85018; 85027; 86850; 86900; 86920; 87070; 88305; 92950; 93005; 93306; 93970; 94002; 94003; 94640; 97162; 97166; 97530; 99291; A6261; C1725; C9113; J0330; J0696; J1100; J1170; J1200; J1940; J2060; J2250; J2270; J2370; J2405; J2543; J2704; J3010; J3420; J3475; J3480; J3490; J7030; J7040; J7042; J7060; J7608; J7620; P9016; P9041; Q9963; Q9967; A4315

== ENCOUNTER 2019-04-03 17:34 | Inpatient (IN) | payer MEDICARE, MEDICAID ==
[~2019-04-03] VITALS: Ht 170.2 cm; Wt 83.5 kg
[2019-04-03 17:15] VITALS: BP 120/83
[2019-04-03] MEDS ORDERED: DIPHENHYDRAMINE 50MG/ML VIAL IV PRN (18:15)
[2019-04-03] MEDS ORDERED: ACETAMINOPHEN 650MG/20.3ML UDC PO PRN (18:15)
[2019-04-03] MEDS ORDERED: ONDANSETRON HCL 4MG/2ML INJ IV PRN (18:15)
[2019-04-03] MEDS ORDERED: IPRATROPIUM/ALBUTEROL 0.5-3(2.5)MG/3ML NEB HHN PRN (18:15)
[2019-04-03 19:36] VITALS: BP 124/85
[2019-04-03 20:00] VITALS: BP 124/85
[2019-04-03] MEDS: MORPHINE SULFATE 2 MG/ML CPJ (NOT FOR IM USE) IV PRN (20:15)
[2019-04-03] MEDS: CARVEDILOL 3.125 MG TABLET PO SCH (21:00)
[2019-04-04] MEDS: MORPHINE SULFATE 2 MG/ML CPJ (NOT FOR IM USE) IV PRN ×2 (00:46→06:18)
[2019-04-04] MEDS: IPRATROPIUM/ALBUTEROL 0.5-3(2.5)MG/3ML NEB HHN SCH ×6 (01:05→21:30)
[2019-04-04] MEDS ORDERED: PANTOPRAZOLE SODIUM 40 MG/VIAL IV SCH (06:00)
[2019-04-04 07:32] LABS: HEMATOCRIT. 30.3 % (42.0-52.0); HEMOGLOBIN. 10.4 g/dL (14.0-18.0); MEAN CORPUSCULAR HEMOGLOBIN 30.8 pg (28.0-32.0); MEAN CORPUSCULAR VOLUME 89.7 fL (80.0-94.0); PLATELET 973 x1000/uL (130-400); RED BLOOD CELL COUNT 3.38 mill/uL (4.7-6.1); RED CELL DISTRIBUTION WIDTH 15.7 % (11.6-14.6)
[2019-04-04 07:59] LABS: CHLORIDE 99 mEq/L (98-107)
[2019-04-04 08:14] VITALS: BP 107/68
[2019-04-04] MEDS: CARVEDILOL 3.125 MG TABLET PO SCH ×2 (09:00→20:36)
[2019-04-04] MEDS: SPIRONOLACTONE 50MG TABLET PO SCH (09:00)
[2019-04-04] MEDS: LOSARTAN POTASSIUM 25 MG TABLET PO SCH (09:00)
[2019-04-04] MEDS ORDERED: CYANOCOBALAMIN 1000MCG/ML VIAL IM SCH (09:00)
[2019-04-04] MEDS: POTASSIUM-SODIUM PHOSPHATE POWDER PACKET PO SCH ×2 (09:15→16:19)
[2019-04-04] MEDS: FUROSEMIDE 20MG TABLET PO SCH (09:15)
[2019-04-04 10:42] LABS: PLATELET ESTIMATE MARKEDLY INCREASED
[2019-04-04] MEDS: FERROUS SULFATE 300MG/5ML UDC PO SCH ×2 (12:46→16:19)
[2019-04-04] MEDS: HYDROCODONE/ACETAMINOPHEN 5/325MG TABLET PO PRN ×3 (12:48→22:25)
[2019-04-04] MEDS: SENNOSIDES/DOCUSATE SOD 8.6/50MG TABLET PO SCH (16:21)
[2019-04-05] MEDS: IPRATROPIUM/ALBUTEROL 0.5-3(2.5)MG/3ML NEB HHN SCH ×6 (01:33→20:00)
[2019-04-05] MEDS: HYDROCODONE/ACETAMINOPHEN 5/325MG TABLET PO PRN ×3 (04:40→11:34)
[2019-04-05] MEDS ORDERED: OMEPRAZOLE 20MG CAPSULE EXTENDED RELEASE PO SCH (07:00)
[2019-04-05 08:00] VITALS: BP 101/73
[2019-04-05] MEDS: CARVEDILOL 3.125 MG TABLET PO SCH ×2 (08:09→20:32)
[2019-04-05] MEDS: SPIRONOLACTONE 50MG TABLET PO SCH (08:09)
[2019-04-05] MEDS: LOSARTAN POTASSIUM 25 MG TABLET PO SCH (08:09)
[2019-04-05] MEDS: POTASSIUM-SODIUM PHOSPHATE POWDER PACKET PO SCH ×2 (08:22→17:21)
[2019-04-05] MEDS: FERROUS SULFATE 300MG/5ML UDC PO SCH ×4 (08:22→17:22)
[2019-04-05] MEDS: FUROSEMIDE 20MG TABLET PO SCH (08:23)
[2019-04-05] MEDS: SENNOSIDES/DOCUSATE SOD 8.6/50MG TABLET PO SCH ×2 (08:26→17:22)
[2019-04-05] MEDS ORDERED: OXYCODONE HCL 5MG TABLET PO PRN (15:15)
[2019-04-05 20:00] VITALS: BP 139/85
[2019-04-05] MEDS ORDERED: HYDROCODONE/ACETAMINOPHEN 5/325MG TABLET PO PRN ×2 (22:00)
[2019-04-05 23:50] VITALS: BP 117/72
[2019-04-11] MEDS ORDERED: CYANOCOBALAMIN 1000MCG/ML VIAL IM SCH (09:00)
== END 2019-04-06 00:20 | disposition short-term general hospital (02) | DRG 73 ==
PROVIDERS: ADMIT Physical Medicine & Rehabilitation Spinal Cord Injury Medicine; ATTEND Internal Medicine
DX: G62.81 Critical illness polyneuropathy (principal); E43 Unspecified severe protein-calorie malnutrition; J96.01 Acute respiratory failure with hypoxia; A41.9 Sepsis, unspecified organism; R65.21 Severe sepsis with septic shock; J18.9 Pneumonia, unspecified organism; K63.1 Perforation of intestine (nontraumatic); I50.42 Chronic combined systolic (congestive) and diastolic (congestive) heart failure; D62 Acute posthemorrhagic anemia; E87.1 Hypo-osmolality and hyponatremia; I42.9 Cardiomyopathy, unspecified; J98.11 Atelectasis; N13.30 Unspecified hydronephrosis; K43.3 Parastomal hernia with obstruction, without gangrene; K43.0 Incisional hernia with obstruction, without gangrene; D63.8 Anemia in other chronic diseases classified elsewhere; D50.9 Iron deficiency anemia, unspecified; I11.0 Hypertensive heart disease with heart failure; D47.3 Essential (hemorrhagic) thrombocythemia; K21.9 Gastro-esophageal reflux disease without esophagitis; E78.5 Hyperlipidemia, unspecified; E11.9 Type 2 diabetes mellitus without complications; R53.81 Other malaise; E53.8 Deficiency of other specified B group vitamins; R13.10 Dysphagia, unspecified; R26.9 Unspecified abnormalities of gait and mobility; R00.0 Tachycardia, unspecified; Z68.28 Body mass index [BMI] 28.0-28.9, adult; Z93.3 Colostomy status; Z85.048 Personal history of other malignant neoplasm of rectum, rectosigmoid junction, and anus; Z92.3 Personal history of irradiation; Z92.21 Personal history of antineoplastic chemotherapy
CPT/HCPCS: 36415; 82962; 84134; 92523; 93005; 93970; 94640; 97110; 97116; 97163; 97167; 97530; 97535; C9113; J2270; J3420; J7620

== ENCOUNTER 2019-04-06 00:49 | Inpatient (IN) | payer MEDICARE, MEDICAID ==
[2019-04-06] VITALS (10 sets, daily range): BP systolic 101–131; BP diastolic 64–76
[~2019-04-06] VITALS: Ht 170.2 cm; Wt 82.1 kg
[2019-04-06] MEDS ORDERED: DIPHENHYDRAMINE 50MG/ML VIAL IV PRN (02:45)
[2019-04-06] MEDS ORDERED: ACETAMINOPHEN 325MG TABLET PO PRN (02:45)
[2019-04-06] MEDS ORDERED: HYDROCODONE/ACETAMINOPHEN 5/325MG TABLET PO PRN (02:45)
[2019-04-06] MEDS ORDERED: ONDANSETRON HCL 4MG/2ML INJ IV PRN (02:45)
[2019-04-06] MEDS ORDERED: ALBUTEROL (0.083%) 2.5MG/3ML NEB HHN PRN (02:45)
[2019-04-06] MEDS ORDERED: OXYCODONE HCL 5MG TABLET PO PRN (02:45)
[2019-04-06] MEDS ORDERED: IPRATROPIUM/ALBUTEROL 0.5-3(2.5)MG/3ML NEB HHN PRN (04:00)
[2019-04-06] MEDS ORDERED: ALBUTEROL (0.083%) 2.5MG/3ML NEB HHN SCH ×2 (04:00→06:00)
[2019-04-06] MEDS: IPRATROPIUM/ALBUTEROL 0.5-3(2.5)MG/3ML NEB HHN SCH ×4 (04:19→20:46)
[2019-04-06] MEDS: OMEPRAZOLE 20MG CAPSULE EXTENDED RELEASE PO SCH (07:11)
[2019-04-06] MEDS: FERROUS SULFATE 325MG TABLET PO SCH ×3 (07:28→17:12)
[2019-04-06] MEDS: SENNOSIDES/DOCUSATE SOD 8.6/50MG TABLET PO SCH ×2 (08:04→17:00)
[2019-04-06] MEDS: CARVEDILOL 3.125 MG TABLET PO SCH ×2 (08:05→20:35)
[2019-04-06] MEDS: POTASSIUM-SODIUM PHOSPHATE POWDER PACKET PO SCH ×2 (08:05→17:12)
[2019-04-06] MEDS: LOSARTAN POTASSIUM 25 MG TABLET PO SCH (08:05)
[2019-04-06] MEDS ORDERED: SPIRONOLACTONE 50MG TABLET PO SCH (09:00)
[2019-04-06] MEDS ORDERED: FUROSEMIDE 20MG TABLET PO SCH (09:00)
[2019-04-06] MEDS: HYDROCODONE/ACETAMINOPHEN 5/325MG TABLET PO PRN ×2 (15:00→21:04)
[2019-04-06 23:00] LABS: CREATINE KINASE 34 IU/L (39-308)
[2019-04-06 23:01] LABS: CREATINE KINASE MB FRACTION < 1.0 ng/mL (0.5-3.6)
[2019-04-07] VITALS (12 sets, daily range): BP systolic 97–120; BP diastolic 68–77
[2019-04-07] MEDS: HYDROCODONE/ACETAMINOPHEN 5/325MG TABLET PO PRN ×4 (02:09→21:32)
[2019-04-07] MEDS: IPRATROPIUM/ALBUTEROL 0.5-3(2.5)MG/3ML NEB HHN SCH ×3 (02:12→21:03)
[2019-04-07] MEDS: OMEPRAZOLE 20MG CAPSULE EXTENDED RELEASE PO SCH (06:33)
[2019-04-07 07:13] LABS: HEMOGLOBIN. 9.5 g/dL (14.0-18.0); MEAN CORPUSCULAR HEMOGLOBIN 29.4 pg (28.0-32.0); MEAN CORPUSCULAR VOLUME 89.4 fL (80.0-94.0); PLATELET 757 x1000/uL (130-400); RED BLOOD CELL COUNT 3.24 mill/uL (4.7-6.1); RED CELL DISTRIBUTION WIDTH 15.6 % (11.6-14.6)
[2019-04-07 07:26] LABS: CHLORIDE 99 mEq/L (98-107)
[2019-04-07 07:41] LABS: PHOSPHORUS 3.8 mg/dL (2.5-4.9)
[2019-04-07] MEDS: FERROUS SULFATE 325MG TABLET PO SCH ×3 (07:44→18:42)
[2019-04-07] MEDS: POTASSIUM-SODIUM PHOSPHATE POWDER PACKET PO SCH ×2 (07:44→18:42)
[2019-04-07] MEDS: LOSARTAN POTASSIUM 25 MG TABLET PO SCH (07:51)
[2019-04-07] MEDS: CARVEDILOL 3.125 MG TABLET PO SCH ×2 (07:51→21:13)
[2019-04-07] MEDS: SENNOSIDES/DOCUSATE SOD 8.6/50MG TABLET PO SCH ×2 (07:52→17:00)
[2019-04-07 11:52] LABS: PLATELET ESTIMATE MARKEDLY INCREASED
[2019-04-07] MEDS ORDERED: IOHEXOL-350 100 ML BOTTLE ONE (12:15)
[2019-04-07] MEDS: FAMOTIDINE 20MG TABLET PO SCH (21:13)
[2019-04-08] VITALS (10 sets, daily range): BP systolic 101–114; BP diastolic 71–78
[2019-04-08] MEDS: IPRATROPIUM/ALBUTEROL 0.5-3(2.5)MG/3ML NEB HHN SCH ×2 (03:04→10:35)
[2019-04-08] MEDS: HYDROCODONE/ACETAMINOPHEN 5/325MG TABLET PO PRN ×3 (03:32→15:04)
[2019-04-08] MEDS: FAMOTIDINE 20MG TABLET PO SCH (07:28)
[2019-04-08] MEDS: FERROUS SULFATE 325MG TABLET PO SCH ×2 (07:28→12:16)
[2019-04-08] MEDS: POTASSIUM-SODIUM PHOSPHATE POWDER PACKET PO SCH (07:28)
[2019-04-08] MEDS: SENNOSIDES/DOCUSATE SOD 8.6/50MG TABLET PO SCH (07:30)
[2019-04-08] MEDS: CARVEDILOL 3.125 MG TABLET PO SCH (07:35)
[2019-04-08] MEDS: LOSARTAN POTASSIUM 25 MG TABLET PO SCH (07:35)
[2019-04-08] MEDS ORDERED: METF-416 PO (20:54)
[2019-04-09] MEDS ORDERED: FUROSEMIDE 20MG TABLET PO SCH (09:00)
[2019-04-11] MEDS ORDERED: CYANOCOBALAMIN 1000MCG/ML VIAL IM SCH (09:00)
== END 2019-04-08 17:25 | DRG 308 ==
LOC: 3WST 00:49
PROVIDERS: ADMIT Internal Medicine; ATTEND Internal Medicine
DX: I47.1 Supraventricular tachycardia (principal); E43 Unspecified severe protein-calorie malnutrition; I50.42 Chronic combined systolic (congestive) and diastolic (congestive) heart failure; I42.9 Cardiomyopathy, unspecified; C66.9 Malignant neoplasm of unspecified ureter; N13.30 Unspecified hydronephrosis; E86.0 Dehydration; E53.8 Deficiency of other specified B group vitamins; E78.5 Hyperlipidemia, unspecified; I25.10 Atherosclerotic heart disease of native coronary artery without angina pectoris; R00.2 Palpitations; D63.8 Anemia in other chronic diseases classified elsewhere; I11.0 Hypertensive heart disease with heart failure; R13.10 Dysphagia, unspecified; R26.9 Unspecified abnormalities of gait and mobility; R94.6 Abnormal results of thyroid function studies; E11.9 Type 2 diabetes mellitus without complications; D64.9 Anemia, unspecified; C67.9 Malignant neoplasm of bladder, unspecified; K21.9 Gastro-esophageal reflux disease without esophagitis; Z93.3 Colostomy status; Z87.11 Personal history of peptic ulcer disease; Z85.038 Personal history of other malignant neoplasm of large intestine; Z79.899 Other long term (current) drug therapy; Z92.3 Personal history of irradiation; Z85.048 Personal history of other malignant neoplasm of rectum, rectosigmoid junction, and anus; Z68.28 Body mass index [BMI] 28.0-28.9, adult
CPT/HCPCS: 36415; 71275; 82550; 82553; 83735; 84100; 84484; 94640; 97116; 97162; 97166; A6261; J7040; J7620; Q9967

== ENCOUNTER 2022-01-22 04:32 | Inpatient (IN) | payer OTHER, MEDICAID ==
[~2022-01-22] VITALS: Ht 170.2 cm; Wt 84.0 kg
[~2022-01-22 04:32] MED LIST: METF-416 PO
[2022-01-22] MEDS ORDERED: ONDANSETRON HCL 4MG/2ML INJ IV STA (05:12)
[2022-01-22] MEDS ORDERED: MORPHINE SULFATE 4 MG/ML CPJ (NOT FOR IM USE) IV STA (05:12)
[2022-01-22 06:27] LABS: HEMATOCRIT. 37.8 % (42.0-52.0); HEMOGLOBIN. 12.6 g/dL (14.0-18.0); MEAN CORPUSCULAR HEMOGLOBIN 29.4 pg (28.0-32.0); MEAN CORPUSCULAR VOLUME 88.4 fL (80.0-94.0); MEAN PLATELET VOLUME 7.5 fl (7.4-10.4); PLATELET 332 x1000/uL (130-400); RED BLOOD CELL COUNT 4.28 mill/uL (4.7-6.1); RED CELL DISTRIBUTION WIDTH 14.9 % (11.6-14.6)
[2022-01-22 06:32] LABS: CHLORIDE 105 mEq/L (98-107)
[2022-01-22] MEDS ORDERED: POTASSIUM CHLORIDE INJ 40 MEQ in DEXT 5% WATER 500 ML IV ONE (08:15)
[2022-01-22] MEDS ORDERED: DIPHENHYDRAMINE 50MG/ML VIAL IV PRN (09:45)
[2022-01-22] MEDS ORDERED: IPRATROPIUM/ALBUTEROL 0.5-3(2.5)MG/3ML NEB HHN PRN (09:45)
[2022-01-22] MEDS ORDERED: MORPHINE SULFATE 2 MG/ML CPJ (NOT FOR IM USE) IV PRN (09:45)
[2022-01-22] MEDS ORDERED: ONDANSETRON HCL 4MG/2ML INJ IV PRN (09:45)
[2022-01-22] MEDS ORDERED: CLONIDINE 0.1MG TABLET PO PRN (09:45)
[2022-01-22] MEDS ORDERED: ACETAMINOPHEN 325MG TABLET PO PRN (09:45)
[2022-01-22] MEDS ORDERED: DEXT 5%/0.9% NACL 1,000 ML IV SCH (10:00)
[2022-01-22] MEDS ORDERED: NALOXONE HCL 0.4MG/ML VIAL IV PRN (10:00)
[2022-01-22] MEDS ORDERED: SODIUM CHLORIDE 0.9% 500 ML IV SCH (13:45)
[2022-01-22 14:28] LABS: PLATELET ESTIMATE NORMAL
[2022-01-22] MEDS ORDERED: SODIUM CHLORIDE 0.9% 500 ML IV ONE ×2 (17:45→23:00)
[2022-01-22] MEDS ORDERED: DEXT 5%/0.45% NACL 1000ML 1,000 ML IV SCH (17:45)
[2022-01-22] MEDS: DEXT 5%/0.9% NACL 1,000 ML IV SCH (18:29)
[2022-01-22] MEDS ORDERED: NOREPINEPHRINE 8MG/250ML PMX 250 ML IV PRN (23:15)
[2022-01-22] MEDS ORDERED: PIPERACILLIN/TAZOBACTAM 3.375GM/50ML PREMIX IV ONE (23:30)
[2022-01-22] MEDS ORDERED: SODIUM CHLORIDE 0.9% 1,000 ML IV ONE (23:30)
[2022-01-22] MEDS ORDERED: PIPERACILLIN/TAZ 3.375G PREMIX 50 ML IV NR (23:45)
[2022-01-22] MEDS ORDERED: ACETAMINOPHEN 650MG SUPP PR ONE (23:45)
[2022-01-22 23:57] LABS: BG BASE EXCESS -13.2 mmol/L (-2.0-2.0); BG CARBOXYHEMOGLOBIN 0.6 % (0.5-1.5); BG DEOXYHEMOGLOBIN 3.8 % (0.0-5.0); BG FRACTION INSPIRED OXYGEN 100; BG METHEMOGLOBIN 0.4 % (0.0-1.5); BG OXYGEN SATURATION 96.2 % (92.0-98.5); BG OXYHEMOGLOBIN 95.2 % (94.0-97.0); BG PCO2 31.7 mmHg (35.0-45.0); BG PH 7.232 (7.350-7.450); BG PO2 93.4 mmHg (75.0-100.0); BG SAMPLE SITE RIGHT RADIAL; BG TOTAL HEMOGLOBIN 14.2 g/dL (12.0-18.0); BG VENT MODE MASK - NRB
[2022-01-23] VITALS (59 sets, daily range): BP systolic 44–147; BP diastolic 23–96
[2022-01-23] MEDS ORDERED: VANCOMYCIN 1.25GM PMX (XELLIA) 250 ML IV NR (00:30)
[2022-01-23 00:33] LABS: CHLORIDE 103 mEq/L (98-107)
[2022-01-23 01:51] LABS: HEMATOCRIT. 42.4 % (42.0-52.0); HEMOGLOBIN. 13.9 g/dL (14.0-18.0); MEAN CORPUSCULAR VOLUME 91.2 fL (80.0-94.0); MEAN PLATELET VOLUME 7.7 fl (7.4-10.4); PLATELET 299 x1000/uL (130-400); RED BLOOD CELL COUNT 4.65 mill/uL (4.7-6.1); RED CELL DISTRIBUTION WIDTH 14.7 % (11.6-14.6)
[2022-01-23 02:19] LABS: PLATELET ESTIMATE NORMAL
[2022-01-23] MEDS ORDERED: ACETAMINOPHEN 650MG SUPP PR NR (03:15)
[2022-01-23] MEDS: DEXT 5%/0.9% NACL 1,000 ML IV SCH (03:45)
[2022-01-23 05:44] LABS: HEMATOCRIT. 41.8 % (42.0-52.0); HEMOGLOBIN. 13.6 g/dL (14.0-18.0); MEAN CORPUSCULAR HEMOGLOBIN 29.5 pg (28.0-32.0); MEAN CORPUSCULAR VOLUME 90.9 fL (80.0-94.0); MEAN PLATELET VOLUME 7.8 fl (7.4-10.4); PLATELET 285 x1000/uL (130-400); RED CELL DISTRIBUTION WIDTH 15.3 % (11.6-14.6)
[2022-01-23 06:01] LABS: CHLORIDE 106 mEq/L (98-107)
[2022-01-23] MEDS ORDERED: VECURONIUM BROMIDE 10 MG/VIAL IV ONE (08:02)
[2022-01-23] MEDS ORDERED: ETOMIDATE 2MG/ML 10ML VIAL IV ONE ×2 (08:02→09:00)
[2022-01-23] MEDS ORDERED: PROPOFOL 10MG/ML 100ML 100 ML IV ONE (09:00)
[2022-01-23] MEDS ORDERED: SUCCINYLCHOLINE CHLORIDE 200MG/10ML IV ONE (09:00)
[2022-01-23] MEDS ORDERED: VANCOMYCIN 1G PREMIX 200 ML IV SCH (09:45)
[2022-01-23] MEDS ORDERED: PIPERACILLIN/TAZ 3.375G PREMIX 50 ML IV SCH (10:00)
[2022-01-23] MEDS ORDERED: FENTANYL 2500MCG/250ML PMX 250 ML IV ONE (11:00)
[2022-01-23] MEDS ORDERED: MIDAZOLAM HCL 100 MG in SODIUM CHLORIDE 0.9% 100 ML IV PRN (11:15)
[2022-01-23] MEDS ORDERED: FENTANYL 2500MCG/250ML PMX 250 ML IV PRN (11:38)
[2022-01-23] MEDS ORDERED: SODIUM BICARBONATE 8.4% 1 MEQ/ML 50ML SYR IV NR ×4 (12:00→20:45)
[2022-01-23 13:10] LABS: BG BASE EXCESS -18.4 mmol/L (-2.0-2.0); BG CARBOXYHEMOGLOBIN 0.3 % (0.5-1.5); BG DEOXYHEMOGLOBIN 6.5 % (0.0-5.0); BG FRACTION INSPIRED OXYGEN 100; BG HCO3 ACT 14.2 mmol/L (22.0-26.0); BG METHEMOGLOBIN 0.3 % (0.0-1.5); BG OXYGEN SATURATION 93.5 % (92.0-98.5); BG OXYHEMOGLOBIN 92.9 % (94.0-97.0); BG PCO2 64.9 mmHg (35.0-45.0); BG PH 6.957 (7.350-7.450); BG PO2 88.6 mmHg (75.0-100.0); BG SAMPLE SITE ALINE; BG TOTAL HEMOGLOBIN 13.8 g/dL (12.0-18.0); BG VENT MODE VENT - AC
[2022-01-23] MEDS ORDERED: NOREPINEPHRINE 8 MG in DEXT 5% WATER 250 ML IV PRN (14:45)
[2022-01-23] MEDS: ACETYLCYSTEINE 100MG/ML 10% VIAL 4ML INH SCH (14:48)
[2022-01-23] MEDS: SODIUM BICARBONATE 150 MEQ in DEXTROSE 5% WATER 1,000 ML IV SCH ×2 (14:49→21:49)
[2022-01-23] MEDS: PIPERACILLIN/TAZOBACTAM 3.375G in DEXT 5% WATER 50ML IV SCH ×2 (14:49→21:36)
[2022-01-23] MEDS ORDERED: SODIUM POLYSTYRENE SULFONATE 15 G/60 ML BOT PO NR (15:15)
[2022-01-23] MEDS ORDERED: SODIUM CHLORIDE 0.9% 500 ML IV NR (15:23)
[2022-01-23] MEDS ORDERED: DEXTROSE 50% WATER 50ML SYRINGE IV NR (15:30)
[2022-01-23] MEDS ORDERED: SODIUM CHLORIDE 0.9% 500 ML IV ONE (15:30)
[2022-01-23] MEDS ORDERED: INSULIN REGULAR (HUMULIN R) 300UNITS/3ML VIAL IV NR (15:30)
[2022-01-23 16:03] LABS: NUCLEATED RED BLOOD CELLS 1 /100 WBC; PLATELET ESTIMATE NORMAL
[2022-01-23 16:19] LABS: BG BASE EXCESS -11.9 mmol/L (-2.0-2.0); BG CARBOXYHEMOGLOBIN 0.3 % (0.5-1.5); BG DEOXYHEMOGLOBIN 3.5 % (0.0-5.0); BG FRACTION INSPIRED OXYGEN 100; BG HCO3 ACT 15.4 mmol/L (22.0-26.0); BG METHEMOGLOBIN 0.2 % (0.0-1.5); BG OXYGEN SATURATION 96.5 % (92.0-98.5); BG PCO2 40.2 mmHg (35.0-45.0); BG PH 7.202 (7.350-7.450); BG PO2 95.3 mmHg (75.0-100.0); BG SAMPLE SITE ALINE; BG TOTAL HEMOGLOBIN 11.9 g/dL (12.0-18.0); BG VENT MODE VENT - AC
[2022-01-23] MEDS: IPRATROPIUM/ALBUTEROL 0.5-3(2.5)MG/3ML NEB HHN SCH ×2 (16:51→20:00)
[2022-01-23] MEDS: PHENYLEPHRINE 50 MG in DEXT 5% WATER 245 ML IV PRN ×2 (18:36→23:42)
[2022-01-23] MEDS ORDERED: MIDAZOLAM HCL 100 MG in SODIUM CHLORIDE 0.9% 80 ML IV PRN (18:47)
[2022-01-23] MEDS: NOREPINEPHRINE 32 MG in DEXT 5% WATER 218 ML IV PRN ×2 (19:16→19:19)
[2022-01-23 20:13] LABS: BG CARBOXYHEMOGLOBIN 0.3 % (0.5-1.5); BG FRACTION INSPIRED OXYGEN 100; BG HCO3 ACT 14.8 mmol/L (22.0-26.0); BG METHEMOGLOBIN 0.3 % (0.0-1.5); BG OXYHEMOGLOBIN 92.4 % (94.0-97.0); BG PCO2 32.9 mmHg (35.0-45.0); BG PO2 71.9 mmHg (75.0-100.0); BG SAMPLE SITE ALINE; BG TOTAL HEMOGLOBIN 13.5 g/dL (12.0-18.0); BG VENT MODE VENT - AC
[2022-01-23] MEDS ORDERED: PIPERACILLIN/TAZOBACTAM 3.375 G in DEXTROSE 5% WATER 50 ML IV SCH (21:00)
[2022-01-23] MEDS: VASOPRESSIN 20 UNIT in SODIUM CHLORIDE 0.9% 99 ML IV PRN (22:05)
[2022-01-24] VITALS (70 sets, daily range): BP systolic 41–163; BP diastolic 13–103
[2022-01-24] MEDS: ACETYLCYSTEINE 100MG/ML 10% VIAL 4ML INH SCH ×2 (00:57→08:13)
[2022-01-24] MEDS: IPRATROPIUM/ALBUTEROL 0.5-3(2.5)MG/3ML NEB HHN SCH ×4 (00:57→12:00)
[2022-01-24] MEDS: PHENYLEPHRINE 100 MG in DEXT 5% WATER 240 ML IV PRN ×2 (03:11→08:31)
[2022-01-24] MEDS: NOREPINEPHRINE 32 MG in DEXT 5% WATER 218 ML IV PRN ×2 (05:15→11:05)
[2022-01-24] MEDS: SODIUM BICARBONATE 150 MEQ in DEXTROSE 5% WATER 1,000 ML IV SCH ×2 (05:20→12:00)
[2022-01-24] MEDS: PIPERACILLIN/TAZOBACTAM 3.375G in DEXT 5% WATER 50ML IV SCH ×2 (05:20→14:00)
[2022-01-24 05:36] LABS: HEMATOCRIT. 34.7 % (42.0-52.0); HEMOGLOBIN. 10.9 g/dL (14.0-18.0); MEAN CORPUSCULAR HEMOGLOBIN 29.7 pg (28.0-32.0); MEAN CORPUSCULAR VOLUME 94.5 fL (80.0-94.0); MEAN PLATELET VOLUME 8.7 fl (7.4-10.4); PLATELET 119 x1000/uL (130-400); RED BLOOD CELL COUNT 3.68 mill/uL (4.7-6.1); RED CELL DISTRIBUTION WIDTH 16.5 % (11.6-14.6)
[2022-01-24 06:01] LABS: CHLORIDE 93 mEq/L (98-107)
[2022-01-24 06:47] LABS: PHOSPHORUS 14.3 mg/dL (2.5-4.9)
[2022-01-24] MEDS ORDERED: DEXT 5%/0.9% NACL 1,000 ML IV SCH (07:30)
[2022-01-24] MEDS ORDERED: INSULIN REGULAR (HUMULIN R) 300UNITS/3ML VIAL IV ONE (07:30)
[2022-01-24] MEDS ORDERED: ALBUTEROL (0.5%) 2.5MG/0.5ML NEB HHN ONE (07:30)
[2022-01-24] MEDS ORDERED: DEXTROSE 50% WATER 50ML SYRINGE IV ONE (07:30)
[2022-01-24] MEDS ORDERED: SODIUM BICARBONATE 8.4% 1 MEQ/ML 50ML SYR IV ONE (07:30)
[2022-01-24 08:14] LABS: BG BASE EXCESS -23.2 mmol/L (-2.0-2.0); BG CARBOXYHEMOGLOBIN 0.3 % (0.5-1.5); BG DEOXYHEMOGLOBIN 4.3 % (0.0-5.0); BG FRACTION INSPIRED OXYGEN 100; BG HCO3 ACT 6.5 mmol/L (22.0-26.0); BG METHEMOGLOBIN 0.3 % (0.0-1.5); BG OXYGEN SATURATION 95.7 % (92.0-98.5); BG OXYHEMOGLOBIN 95.1 % (94.0-97.0); BG PH 7.002 (7.350-7.450); BG PO2 115.8 mmHg (75.0-100.0); BG SAMPLE SITE ALINE; BG TOTAL HEMOGLOBIN 10.1 g/dL (12.0-18.0); BG VENT MODE VENT - AC
[2022-01-24] MEDS: VASOPRESSIN 20 UNIT in SODIUM CHLORIDE 0.9% 99 ML IV PRN (08:32)
[2022-01-24] MEDS ORDERED: CALCIUM GLUCONATE 100MG/ML 10ML VIAL IV SCH (09:15)
[2022-01-24 09:26] LABS: BG CARBOXYHEMOGLOBIN 0.3 % (0.5-1.5); BG DEOXYHEMOGLOBIN 6.4 % (0.0-5.0); BG FRACTION INSPIRED OXYGEN 100; BG METHEMOGLOBIN 0.3 % (0.0-1.5); BG OXYGEN SATURATION 93.6 % (92.0-98.5); BG PCO2 23.4 mmHg (35.0-45.0); BG PH 7.096 (7.350-7.450); BG PO2 97.7 mmHg (75.0-100.0); BG SAMPLE SITE ALINE; BG TOTAL HEMOGLOBIN 8.9 g/dL (12.0-18.0); BG VENT MODE VENT - AC
[2022-01-24 09:57] LABS: NUCLEATED RED BLOOD CELLS 2 /100 WBC; PLATELET ESTIMATE SLIGHTLY DECREASED
[2022-01-24] MEDS ORDERED: ALBUTEROL (0.083%) 2.5MG/3ML NEB ONE (10:52)
[2022-01-24] MEDS ORDERED: EPINEPHRINE 10 MG in SODIUM CHLORIDE 0.9% 240 ML IV PRN (11:30)
== END 2022-01-24 12:00 | DRG 871 ==
LOC: ER 04:55 → EDBEDREQ 08:44 → EDBEDREQSVC 22:40 → MICUSO 23:39 → CVICU 01-23 13:45
PROVIDERS: ADMIT Internal Medicine; ATTEND Internal Medicine
PROC: 5A1935Z Respiratory Ventilation, Less than 24 Consecutive Hours (ICD-10-PCS; principal; 2022-01-23)
PROC: 0BH17EZ Insertion of Endotracheal Airway into Trachea, Via Natural or Artificial Opening (ICD-10-PCS; 2022-01-23)
PROC: 5A09357 Assistance with Respiratory Ventilation, Less than 24 Consecutive Hours, Continuous Positive Airway Pressure (ICD-10-PCS; 2022-01-23)
PROC: 02HV33Z Insertion of Infusion Device into Superior Vena Cava, Percutaneous Approach (ICD-10-PCS; 2022-01-23)
PROC: B548ZZA Ultrasonography of Superior Vena Cava, Guidance (ICD-10-PCS; 2022-01-23)
PROC: 4A133B1 Monitoring of Arterial Pressure, Peripheral, Percutaneous Approach (ICD-10-PCS; 2022-01-23)
PROC: 4A133J1 Monitoring of Arterial Pulse, Peripheral, Percutaneous Approach (ICD-10-PCS; 2022-01-23)
PROC: 5A12012 Performance of Cardiac Output, Single, Manual (ICD-10-PCS; 2022-01-24)
DX: A41.9 Sepsis, unspecified organism (principal); G93.41 Metabolic encephalopathy; R65.21 Severe sepsis with septic shock; J96.01 Acute respiratory failure with hypoxia; J69.0 Pneumonitis due to inhalation of food and vomit; N17.0 Acute kidney failure with tubular necrosis; E87.2 Acidosis; I50.22 Chronic systolic (congestive) heart failure; E87.1 Hypo-osmolality and hyponatremia; K56.609 Unspecified intestinal obstruction, unspecified as to partial versus complete obstruction; N12 Tubulo-interstitial nephritis, not specified as acute or chronic; Z20.822 Contact with and (suspected) exposure to COVID-19; I11.0 Hypertensive heart disease with heart failure; E87.6 Hypokalemia; I95.9 Hypotension, unspecified; E78.5 Hyperlipidemia, unspecified; K21.9 Gastro-esophageal reflux disease without esophagitis; E78.00 Pure hypercholesterolemia, unspecified; E83.52 Hypercalcemia; K31.89 Other diseases of stomach and duodenum; E11.649 Type 2 diabetes mellitus with hypoglycemia without coma; D64.9 Anemia, unspecified; E87.5 Hyperkalemia; Z93.3 Colostomy status; Z85.038 Personal history of other malignant neoplasm of large intestine; Z82.49 Family history of ischemic heart disease and other diseases of the circulatory system; Z87.11 Personal history of peptic ulcer disease
CPT/HCPCS: 31500; 36415; 36600; 71045; 74018; 74176; 80048; 80053; 80202; 82105; 82140; 82330; 82375; 82378; 82805; 82962; 83605; 83735; 83880; 84100; 84145; 84484; 85025; 87070; 87426; 93005; 93970; 94002; 94003; 94640; 94660; 99291; C1893; C9803; J0330; J0610; J1815; J2250; J2270; J2370; J2405; J2543; J3010; J3370; J3480; J3490; J7042; J7050; J7060; J7070; J7608